=== PATIENT | female | born 1945 | race Caucasian/White ===

== ENCOUNTER → 2018-07-18 | Outpatient (CLI) | payer MEDICARE, OTHER ==
[~2018-07-18] MED LIST: CYAN100 PO; DAILY VALUE1 EACH PO; LISI20 PO; SOMA350 MG PO
== END | disposition home or self-care (01) ==
LOC: LAB SHORT 11:38 → LAB 11:38
DX: N39.0 Urinary tract infection, site not specified (principal); R30.0 Dysuria
CPT/HCPCS: 87077; 87086; 87186

== ENCOUNTER → 2019-06-10 | Outpatient (CLI) | payer MEDICARE, OTHER | END | disposition home or self-care (01) | LOC: LAB 11:19 → LAB SHORT 11:19 | DX: N39.0 Urinary tract infection, site not specified (principal) | CPT/HCPCS: 87077; 87086; 87186 ==

== ENCOUNTER → 2019-07-15 | Outpatient (CLI) | payer MEDICARE, OTHER | LOC: LAB SHORT 13:40 → LAB 13:40 | DX: N39.0 Urinary tract infection, site not specified (principal); R30.0 Dysuria | CPT/HCPCS: 87077; 87086; 87186 ==

== ENCOUNTER → 2019-08-01 | Outpatient (CLI) | payer MEDICARE, OTHER | END | disposition home or self-care (01) | LOC: LAB SHORT 11:45 → LAB 11:45 | DX: N39.0 Urinary tract infection, site not specified (principal) | CPT/HCPCS: 87077; 87086; 87186 ==

== ENCOUNTER → 2019-09-24 | Outpatient (CLI) | payer MEDICARE, OTHER | END | disposition home or self-care (01) | LOC: LAB 17:45 → LAB SHORT 17:45 | DX: N39.0 Urinary tract infection, site not specified (principal) | CPT/HCPCS: 87077; 87086; 87186 ==

== ENCOUNTER 2024-03-12 07:10 | Day surgery (SDC) | payer MEDICARE ==
[~2024-03-12] VITALS: Ht 162.6 cm; Wt 109.5 kg
[~2024-03-12 07:10] MED LIST changes: +Balanced Salt Epinephrine Irrigation Solution 500 mL IR PRN; +Gentamicin Ophth IR Soln 4 MG/0.4 ML SYR IR SCH; +LIDOCAINE 2% LEFTEYE SCH; +Lidocaine HCl/Pf 1% 5 ML VIAL XX SCH; +NS 500 ML IV ONE; +PHENYLEPHRINE\\TROPICAMIDE\\TETRACAINE OPHTHALMIC DILATING SOLN LEFTEYE PRN; +Povidone-Iodine 450 DROP/30 ML Solution LEFTEYE SCH; +Povidone-Iodine 450 DROP/30 ML Solution ONE; +Vancomycin Ophth IR Soln 10 MG/0.2 ML SYR IR SCH
[2024-03-12] MEDS ORDERED: AMLODIPINE BESYL5 MG PO (07:45)
[2024-03-12] MEDS ORDERED: SYNTHROID50 MC1 PO (07:47)
[2024-03-12] MEDS ORDERED: VABYSMO6 MG/0.05 IO (07:48)
--- NOTE | 2024-03-12 08:00 | NUR ---
03/12/24 0800 Abigail Robles TETRACAINE ADMINISTERED TO THE LEFT EYE AT 0748, PLEDGET PLACED AT 0749 BY [facility].TRISTA MOSER.
[2024-03-12] MEDS ORDERED: NS 500 ML IV ONE (08:07)
[2024-03-12] MEDS ORDERED: FentaNYL Citrate 50 MCG/ML 2 ML Injection ONE (08:25)
[2024-03-12] MEDS ORDERED: Midazolam HCl 1MG / ML 2ML Vial ONE (08:26)
[2024-03-12] MEDS ORDERED: Tetracaine HCl 0.5% Opth Soln 15 ml LEFTEYE ONE (08:49)
[2024-03-12 09:14] VITALS: BP 161/82
== END 2024-03-12 09:36 | disposition home or self-care (01) ==
LOC: ORSCSDS 07:10
PROVIDERS: Ophthalmology
PROC: 08RK3JZ Replacement of Left Lens with Synthetic Substitute, Percutaneous Approach (ICD-10-PCS; principal; 2024-03-12 08:30)
DX: E11.36 Type 2 diabetes mellitus with diabetic cataract (principal); H25.12 Age-related nuclear cataract, left eye; Z96.1 Presence of intraocular lens; I12.9 Hypertensive chronic kidney disease with stage 1 through stage 4 chronic kidney disease, or unspecified chronic kidney disease; E11.22 Type 2 diabetes mellitus with diabetic chronic kidney disease; N18.9 Chronic kidney disease, unspecified; Z68.41 Body mass index [BMI] 40.0-44.9, adult; Z98.84 Bariatric surgery status; E05.90 Thyrotoxicosis, unspecified without thyrotoxic crisis or storm; H02.834 Dermatochalasis of left upper eyelid; H02.831 Dermatochalasis of right upper eyelid; Z79.899 Other long term (current) drug therapy
CPT/HCPCS: 82947; J2250; J3010; J7040; V2632

== ENCOUNTER → 2025-02-19 | Outpatient (CLI) | payer MEDICARE ==
[~2025-02-19] MED LIST changes: +AMLODIPINE BESYL5 MG PO; -Balanced Salt Epinephrine Irrigation Solution 500 mL IR PRN; -Gentamicin Ophth IR Soln 4 MG/0.4 ML SYR IR SCH; -LIDOCAINE 2% LEFTEYE SCH; -Lidocaine HCl/Pf 1% 5 ML VIAL XX SCH; -NS 500 ML IV ONE; -PHENYLEPHRINE\\TROPICAMIDE\\TETRACAINE OPHTHALMIC DILATING SOLN LEFTEYE PRN; -Povidone-Iodine 450 DROP/30 ML Solution LEFTEYE SCH; -Povidone-Iodine 450 DROP/30 ML Solution ONE; +SYNTHROID50 MC1 PO; +VABYSMO6 MG/0.05 IO; -Vancomycin Ophth IR Soln 10 MG/0.2 ML SYR IR SCH
== END | disposition home or self-care (01) ==
LOC: LAB 10:43 → LAB SHORT 10:43
DX: N39.0 Urinary tract infection, site not specified (principal); R31.9 Hematuria, unspecified
CPT/HCPCS: 87077; 87086; 87186